=== PATIENT | female | born 1980 | race African-American/Black ===

== ENCOUNTER 2018-03-03 14:00 | Inpatient (IN) | payer OTHER ==
[2018-03-05] MEDS ORDERED: CITRIC ACID/SODIUM CITRATE 30 ML UNIT-DOSE CUP PO ONE (08:08)
[2018-03-05] MEDS ORDERED: ELECTROLYTE-148 SOLN 500 ML IV ONE (08:08)
[2018-03-05] MEDS ORDERED: ELECTROLYTE-148 SOLN 1,000 ML IV SCH (08:15)
[2018-03-05 08:39] VITALS: BMI 30.2
[2018-03-05] MEDS ORDERED: ONDANSETRON 4 MG/2 ML VIAL IVPUSH PRN (08:39)
[2018-03-05] MEDS ORDERED: morphine SULFATE/Preservative Free 0.5 MG/ML (1cc Syringe) ONE (09:01)
--- NOTE | 2018-03-05 09:21 | HP ---
Past Medical History - Admission Chief Complaint: Here for repeat c section. History Source: Patient - Past Medical History Cardiovascular: No: HTN Pulmonary: No: COPD Hepatobiliary: No: Hepatitis B, Hepatitis C ...: 8 ...Para: 2 ...Term: 2 ...: 0 ...Spon : 1 ...Induced : 4 ...Multiple Gestation: 0 ...LMP: 05/30/17 ... 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 No: HIV, MRSA Psych: No: Addictions, Anxiety, Bipolar - Past Surgical History Past Surgical History: Yes: Hx Myomectomy: No Hx Transabdominal Cerclage: No - Smoking History Smoking history: Never smoked Aproximately how many cigarettes per day: 0 - Alcohol/Substance Use Hx Alcohol Use: No - Social History ADL: Independent History of Recent Travel: No Home Medications - Allergies Allergies/Adverse Reactions: Allergies Allergy/AdvReac Type Severity Reaction Status Date / Time No Known Allergies Allergy Verified 03/03/18 15:29 - Home Medications Home Medications: Ambulatory Orders RX: Vitamins (Sjr) - 1 tab PO DAILY 01/06/18 Review of Systems - Review of Systems Constitutional: reports: No Symptoms Eyes: reports: No Symptoms HENT: reports: No Symptoms Neck: reports: No Symptoms Cardiovascular: reports: No Symptoms Respiratory: reports: No Symptoms Gastrointestinal: reports: No Symptoms Genitourinary: reports: No Symptoms Breasts: reports: No Symptoms Reported Musculoskeletal: reports: No Symptoms Integumentary: reports: No Symptoms Neurological: reports: No Symptoms Endocrine: reports: No Symptoms Hematology/Lymphatic: reports: No Symptoms Psychiatric: reports: No Symptoms Physical Exam - Maternity Vital Signs: Vital Signs Temperature 98.3 F 03/05/18 08:15 Pulse Rate 93 H 03/05/18 08:15 Respiratory Rate 20 03/05/18 08:15 Blood Pressure 133/79 03/05/18 08:15 O2 Sat by Pulse Oximetry (%) Constitutional: Yes: Well Nourished, No Distress, Calm Eyes: Yes: Conjunctiva Clear, EOM Intact HENT: Yes: Atraumatic, Normocephalic Neck: Yes: Supple, Trachea Midline Cardiovascular: Yes: Regular Rate and Rhythm Lungs: Clear to auscultation - Abdominal Exam/OB Number of Fetuses: Single Presentation: Vertex Contractions: Yes Regularity: Irregular Intensity: Mild/Mod Monitor Mode: External Category: I Accelerations: Uniform Decelerations: None - Vaginal Exam/OB Vaginal Bleediing: No Amniotic Membrane Status: Intact Presentation: Vertex/Position - Physical Exam Psychiatric: Yes: Alert, Oriented Hemorrhage Risk Assessment - Risk Factors Medium Risk Factors: Yes: Prior , uterine surgery,or multiple laparotomies High Risk Factors: Yes: None Risk Score: 1 Risk Level: Medium Risk Problem List - Problems (1) section Code(s): Z98.89 - OTHER SPECIFIED POSTPROCEDURAL STATES * DO NOT USE * Assessment/Plan 37 y/o with SIUP at 39.6 weeks, prior c section X 2, for repeat c section, desires sterilization - for BTL AFVSS FHTs cat 1 NPO li anesthesia and nursery aware
[2018-03-05] MEDS ORDERED: oxyCODONE HCL 5 MG TABLET PO PRN ×2 (09:22)
[2018-03-05] MEDS ORDERED: METHYLERGONOVINE MALEATE 0.2 MG/1 ML AMP IM PRN (09:22)
[2018-03-05] MEDS ORDERED: ceFAZolin SODIUM 1 GM VIAL ONE (09:34)
[2018-03-05] MEDS ORDERED: OXYTOCIN 10 UNITS/ML VIAL ONE (09:43)
--- NOTE | 2018-03-05 10:12 | OP ---
Operative Note - Note: Operative Date: 03/05/18 Pre-Operative Diagnosis: SIUP at 39.6 weeks, prior section X 2 Operation: Repeat delivery, bilateral tubal ligation Findings: Normal b/l tubes and ovaries, live male Post-Operative Diagnosis: Same as Pre-op Surgeon: Mercy Talamantes Hand Leather Trimmer: Chandra Cedillo Anesthesiologist/DELIVERY ROOM SUPERVISOR: Radha Greenwood Anesthesia: Spinal Estimated Blood Loss (mls): 600 Operative Report Dictated: Yes
--- NOTE | 2018-03-05 10:32 | SURG ---
Surgery Teaching Pastor Note Teaching Pastor: Chandra Cedillo PA-C Date of Service: 03/05/18 Diagnosis: repeat Procedure: Cesarian section and bilateral salpingectomy I was present for the entirety of the operative procedure. For further detail, please refer to operative report.
[2018-03-05] MEDS ORDERED: OXYTOCIN 20 UNITS in 0.9% NS 20 UNIT/1,000 ML INFUS.BAG IV ONE (10:41)
[2018-03-05] MEDS: OXYTOCIN 20 UNITS in 0.9% NS 20 UNIT/1,000 ML INFUS.BAG IV SCH ×2 (11:00→22:48)
[2018-03-05] MEDS: FERROUS SO4 325 MG TABLET (FP) PO SCH ×2 (11:00→22:23)
--- NOTE | 2018-03-05 11:54 | OP ---
DATE OF OPERATION: 03/05/2018 PREOPERATIVE DIAGNOSIS: Prior section x2, desire for permanent sterilization, declined trial of labor. POSTOPERATIVE DIAGNOSIS: Prior section x2, desire for permanent sterilization, declined trial of labor. PROCEDURE: Repeat low transverse section and bilateral tubal ligation using modified Destiny technique. SURGEON: Mercy Talamantes DO ANESTHESIA: Spinal by Dr. Radha Greenwood MD SPECIMEN COLLECTOR: Chandra Cedillo PA-C ESTIMATED BLOOD LOSS: 600 mL. COMPLICATIONS: None. SPECIMENS REMOVED: Placenta and portions of left and right fallopian tubes. COUNTS: Sponge, needle, and instrument count correct at the end of the case. DISPOSITION: Stable to PACU. FINDINGS: Normal live infant and normal bilateral tubes and ovaries. BRIEF HISTORY AND PROCEDURE: Patient is a 37-year-old female with a single intrauterine at 39.6 weeks, who had been scheduled for a repeat delivery. The patient was admitted to the hospital on March 05, 2018. Consents for the procedure were signed. She also expressed desire for permanent sterilization, and consents were signed for bilateral tubal ligation. Upon admission, the patient had no complications and no complaints. heart tracing was category 1. The patient was then taken back to the operating room where she was given spinal anesthesia with Dr. Greenwood, and placed in the dorsal supine position. A Nelson catheter was placed under sterile conditions. She was prepped and draped in the usual sterile fashion and a hard timeout was performed. A Pfannenstiel skin incision was created in the skin with a scalpel on her prior incision, and this was carried down to the underlying layer of rectus fascia sharply. The fascia was incised on either side of the midline sharply, and the fascial incision was extended in a superolateral direction sharply. The fascia was tented upward and dissected off the underlying layer of rectus muscle sharply, and the midline was identified. The musculature was retracted laterally, and the peritoneum was entered sharply using Metzenbaum scissors. A bladder blade was inserted to protect the bladder, and a transverse incision in the lower uterine segment was created sharply and extended in a superolateral direction bluntly. Infant then was delivered from the left occipitotransverse position without difficulty. Bilateral shoulders were delivered with ease, along with the remainder of the . The cord was clamped twice and cut in between. The infant was taken to the warmer to be assessed by the neonatology staff. Upon delivery the fetus, meconium-stained fluid was noted. The placenta was delivered with a 3-vessel cord, was intact, was manually extracted. The uterus was exteriorized and the abdomen, inspected and cleared of all amniotic membrane and debris with a dry lap sponge. The hysterotomy was reapproximated in a double-layer closure using 1 Vicryl in a running locked fashion, second layer using 0 Biosyn in a running fashion. Bilateral tubes and ovaries were noted to be normal. The right fallopian tube was identified, elevated with a Анна clamp, and a portion of the fallopian tube was tied off with free ties and excised with Metzenbaum scissors and sent to Pathology for permanent evaluation. The same was repeated with the left fallopian tube in order to complete the bilateral tubal ligation. The posterior cul-de-sac was cleared of all blood clot and debris. The uterus was placed back in the abdomen. Bilateral gutters were inspected and cleared of blood clot and debris. Bilateral tubal sites were noted to be hemostatic. The incision was noted to be hemostatic. Peritoneum was then reapproximated using 2-0 chromic in a running fashion. The musculature was approximated in 2 interrupted sutures using 0 Biosyn suture, and the fascia was reapproximated in 1 Vicryl using running fashion. The subcutaneous tissue was irrigated. Any bleeding was cauterized with the Bovie device. Vicryl 3-0 suture was used for the subcutaneous tissue, and the skin was reapproximated using 4-0 Biosyn in a subcuticular fashion. Steri-Strips were then applied. The patient tolerated the procedure well, recovered in stable condition in the recovery room after the procedure. MERCY TALAMANTES DO /[id number]
[2018-03-05] MEDS ORDERED: IBUPROFEN 800 MG/8 ML IJ IVPB ONE (12:00)
[2018-03-05] MEDS: IBUPROFEN 800 MG/8 ML IJ IVPB PRN ×2 (12:00→19:49)
[2018-03-05] MEDS ORDERED: TUBERCULIN PPD 5 TU/0.1ML SYRINGE (IN PATIENT USE ONLY) ID ONE (14:30)
[2018-03-05] MEDS: ACETAMINOPHEN 325 MG TABLET (FP) PO PRN (17:14)
[2018-03-05] MEDS: hydrOXYzine HCL 10 MG TABLET PO SCH (22:23)
[2018-03-06] MEDS: SIMETHICONE 80 MG TAB.CHEW (FP) PO PRN ×5 (02:28→21:27)
[2018-03-06] MEDS: ACETAMINOPHEN 325 MG TABLET (FP) PO PRN ×4 (02:28→21:27)
[2018-03-06] MEDS: IBUPROFEN 600 MG TABLET (FP) PO PRN ×4 (02:28→21:28)
[2018-03-06] MEDS: hydrOXYzine HCL 10 MG TABLET PO SCH ×3 (06:15→21:27)
[2018-03-06 08:16] LABS: BASO % 0.5 % (0-2.0); EOS % 0.7 % (0-4.5); HEMATOCRIT 32.3 % (32.4-45.2); HEMOGLOBIN 10.3 GM/dL (10.7-15.3); LYMPH % 14.3 % (8-40); MCH 29.1 pg (25.7-33.7); MCHC 31.9 g/dl (32.0-36.0); MEAN CELL VOLUME 91.1 fl (80-96); MEAN PLT VOLUME 7.6 fl (7.5-11.1); MONO % 10.8 % (3.8-10.2); NEUT % 73.7 % (42.8-82.8); PLATELET COUNT 265 K/MM3 (134-434); RBC 3.55 M/mm3 (3.60-5.2); RDW 13.8 % (11.6-15.6); WHITE BLOOD COUNT 13.8 K/mm3 (4.0-10.0)
[2018-03-06] MEDS ORDERED: BISACODYL 10 MG SUPP.RECT RC PRN (09:22)
[2018-03-06] MEDS: FERROUS SO4 325 MG TABLET (FP) PO SCH ×2 (09:39→21:27)
--- NOTE | 2018-03-06 10:45 | PN ---
Progress Note (short form) - Note Progress Note: Anesthesia postop note 37 y/o F s/o spinal anesthesia/ duramorph for section POD#1, vss, aaox3, sensory motor intact distally, pain well controlled No anesthesia complications.
[2018-03-07] MEDS: hydrOXYzine HCL 10 MG TABLET PO SCH ×3 (06:02→21:27)
[2018-03-07] MEDS: SIMETHICONE 80 MG TAB.CHEW (FP) PO PRN ×3 (06:15→17:16)
[2018-03-07] MEDS: ACETAMINOPHEN 325 MG TABLET (FP) PO PRN ×3 (06:15→17:18)
[2018-03-07] MEDS: IBUPROFEN 600 MG TABLET (FP) PO PRN ×3 (06:15→17:16)
[2018-03-07] MEDS: FERROUS SO4 325 MG TABLET (FP) PO SCH ×2 (09:19→21:27)
--- NOTE | 2018-03-07 09:44 | PN ---
Post Progress Note - Subjective Subjective: No complaints, pain controlled with motrin/tylenol. Tolerating diet. Ambulating, voiding, passing flatus. VB Minimal. Type of Delivery: Repeat C/S Vital Signs: Vital Signs Temperature 98.5 F 03/06/18 21:32 Pulse Rate 94 H 03/06/18 21:32 Respiratory Rate 20 03/06/18 21:32 Blood Pressure 112/60 03/06/18 21:32 O2 Sat by Pulse Oximetry (%) 98 03/05/18 11:45 Uterus: Yes: Fundus Firm Incision: Yes: Sutures intact Abdomen/GI: Yes: Abdomen soft. No: Tender Lochia: Yes: Rubra Lochia, amount: Small Extremities: Yes: Calves non-tender Perineum: Yes: Intact Activity: Ambulating - Labs Labs: CBC WBC 13.8 K/mm3 (4.0-10.0) H 03/06/18 07:45 RBC 3.55 M/mm3 (3.60-5.2) L 03/06/18 07:45 Hgb 10.3 GM/dL (10.7-15.3) L 03/06/18 07:45 Hct 32.3 % (32.4-45.2) L 03/06/18 07:45 MCV 91.1 fl (80-96) 03/06/18 07:45 MCH 29.1 pg (25.7-33.7) 03/06/18 07:45 MCHC 31.9 g/dl (32.0-36.0) L 03/06/18 07:45 RDW 13.8 % (11.6-15.6) 03/06/18 07:45 Plt Count 265 K/MM3 (134-434) D 03/06/18 07:45 MPV 7.6 fl (7.5-11.1) 03/06/18 07:45 Absolute Neuts (auto) 10.2 K/mm3 (1.5-8.0) H 03/06/18 07:45 Neutrophils % 73.7 % (42.8-82.8) 03/06/18 07:45 Lymphocytes % 14.3 % (8-40) 03/06/18 07:45 Monocytes % 10.8 % (3.8-10.2) H 03/06/18 07:45 Eosinophils % 0.7 % (0-4.5) 03/06/18 07:45 Basophils % 0.5 % (0-2.0) 03/06/18 07:45 Nucleated RBC % 0 % (0-0) 03/06/18 07:45 Problem List - Problems (1) section Code(s): Z98.89 - OTHER SPECIFIED POSTPROCEDURAL STATES * DO NOT USE * Assessment/Plan 37 y/o POD#2 s/p repeat c section and BTL AFVSS regular diet ambulation plan for discharge
[2018-03-08] MEDS: ACETAMINOPHEN 325 MG TABLET (FP) PO PRN ×2 (03:11→07:30)
[2018-03-08] MEDS: SIMETHICONE 80 MG TAB.CHEW (FP) PO PRN ×2 (03:11→07:30)
[2018-03-08] MEDS: IBUPROFEN 600 MG TABLET (FP) PO PRN ×2 (03:12→07:28)
[2018-03-08] MEDS: hydrOXYzine HCL 10 MG TABLET PO SCH ×2 (06:23→13:26)
--- NOTE | 2018-03-08 07:59 | DS ---
Physical Exam-SCENIC DESIGNER Vital Signs: Vital Signs Temperature 98.6 F 03/07/18 21:41 Pulse Rate 87 03/07/18 21:41 Respiratory Rate 18 03/07/18 21:41 Blood Pressure 132/79 03/07/18 21:41 O2 Sat by Pulse Oximetry (%) 98 03/05/18 11:45 Labs: CBC, BMP 03/06/18 07:45 Delivery - Delivery Type of Anesthesia: Spinal Episiotomy/Laceration: None EBL (cc): 600 Delivery, Single - Stages of Labor Date 1st Stage Initiatied: 03/04/18 Time 1st Stage Initiated: 22:00 Date of Delivery: 03/05/18 Time of Delivery: 09:41 Time Placenta Delivered: 09:42 - Condition of Infant Processor Inspector/Bilingual Branch Manager Present: Yes Name: Dom Shelton Infant Gender: Male Weight: 7 lb 8 oz Position: Left, OT Total Hours ROM (Hrs/Mins): 2min - 1 Minute Total Score: 9 5 Minutes Total Score: 9 - [place] Feeding Plan Initial Plan: Elected not to breastfeed exclusively throughout hospitalization Discharge Summary Reason For Visit: Condition: Good - Instructions Diet, Activity, Other Instructions: Physical activity Resume your normal everyday activity as tolerated no heavy lifting or exercise until seen by your surgeon. You may walk unlimited benson of and climb stairs. You may resume driving the car when you feel safe and comfortable behind the wheel. No sexual activity as instructed. Wound care If you have a bandage, leave it on, and keep dry for 48-72 hours. After that time discard the outer bandage. If they are tapes on the skin under the out of bandage leave them in place. They will peel off in the next 7 to 10 days. Do Not Peel them off. You may shower the day after surgery. If there are tapes present on the skin, you may shower over them. Diet There are no dietary restrictions. Eat healthy, high-fiber foods. Drink 6 to 8 glasses of liquid each day. This will assist in keeping your bowels are regular. Pain management You may take Tylenol or acetaminophen or Ibuprofen (for example, Motrin, Advil etc.) from my pain prescription medication is ordered should be taken as prescribed for moderate to severe pain. Call MD for any of the following: Severe pain not relieved by medication Fever of 101 or higher Excessive bleeding or drainage on dressing Inability to urinate Referrals: Mercy Talamantes DO [Staff Physician] - Disposition: HOME - Home Medications Comprehensive Discharge Medication List: Ambulatory Orders RX: Vitamins (Sjr) - 1 tab PO DAILY 01/06/18 RX: Ibuprofen [Motrin -] 600 mg PO TID #21 tablet 03/08/18
[2018-03-08 08:25] LABS: BASO % 0.6 % (0-2.0); HEMATOCRIT 29.1 % (32.4-45.2); HEMOGLOBIN 9.4 GM/dL (10.7-15.3); LYMPH % 22.6 % (8-40); MCH 29.6 pg (25.7-33.7); MCHC 32.2 g/dl (32.0-36.0); MEAN PLT VOLUME 7.8 fl (7.5-11.1); MONO % 11.6 % (3.8-10.2); NEUT % 62.2 % (42.8-82.8); PLATELET COUNT 242 K/MM3 (134-434); RBC 3.17 M/mm3 (3.60-5.2); RDW 13.8 % (11.6-15.6); WHITE BLOOD COUNT 9.6 K/mm3 (4.0-10.0)
[2018-03-08 08:36] VITALS: BP 105/71; PULSE 78; TEMP 98
[2018-03-08] MEDS: FERROUS SO4 325 MG TABLET (FP) PO SCH (09:32)
--- NOTE | 2018-03-11 16:05 | PATH ---
Surgical Pathology Report Patient Name: NOVA WONG [facility]. Rec. #: [id number] /Age/Gender: 1980 (Age: 37) / F Account: [id number] Location: [facility] OBS/CORPORATE GIVING MANAGER Taken: 03/05/2018 Received: 03/05/2018 Reported: 03/11/2018 Physicians: Mercy Talamantes M.D. Specimen(s) Received A: PLACENTA B: RIGHT FALLOPIAN TUBE C: LEFT FALLOPIAN TUBE Clinical History , 39.4 weeks IAB x4, SPAB x1 Grand multiparity, advanced maternal age, HSV-2 2007, 2012 Final Diagnosis A. PLACENTA, DELIVERY: FOCALLY DISRUPTED THIRD TRIMESTER PLACENTA WITH INTERVILLOUS FIBRIN DEPOSITION, THREE VESSEL UMBILICAL CORD AND MECONIUM HISTIOCYTOSIS OF PLACENTAL MEMBRANES. B. RIGHT FALLOPIAN TUBE, PARTIAL SALPINGECTOMY: FULL LUMINAL PORTION OF UNREMARKABLE FALLOPIAN TUBE. C. LEFT FALLOPIAN TUBE, PARTIAL SALPINGECTOMY: FULL LUMINAL PORTION OF UNREMARKABLE FALLOPIAN TUBE. Electronically Signed Junior Ortega M.D. Gross Description A. The specimen is received fresh labeled placenta and is a 433 gram, 18.5 x 15.0 x 2.4 cm. placenta with attached membranes and umbilical cord. The attached membranes are boo green, meconium stained, translucent with focal opacities and insert marginally. The umbilical cord measures 33 cm. in length and averages 0.9 cm. in diameter. The cord inserts centrally. No true knots or strictures are identified. Cut surface of the umbilical cord reveals 3 vessels. The surface is cooper green, meconium stained with minimal fibrin deposition and appropriate caliber vessels. The maternal surface is red-brown with focal defects. Sectioning reveals red-brown, spongy parenchyma. No lesions are identified. Clay Dry Press Helper sections are submitted in three cassettes as follows: 1- membrane rolls and umbilical cord; 2-3- full thickness sections of placenta. B. Received in formalin labeled "right fallopian tube," is a 2.1 cm in length portion of fallopian tube. No fimbria are present. The outer surface is boo-cooper and smooth. Sectioning reveals an unremarkable lumen. Clay Dry Press Helper sections are submitted in one cassette. C. Received in formalin labeled "left fallopian tube," is a 2.4 cm in length portion of fallopian tube. No fimbria are present. The outer surface is boo-cooper and smooth. Sectioning reveals an unremarkable lumen. Clay Dry Press Helper sections are submitted in one cassette. 03/10/2018 [facility]03/10/2018
== END 2018-03-08 16:41 | disposition home or self-care (01) | DRG 784 ==
LOC: JLDR 03-05 07:25 → J3W 03-05 12:44
PROVIDERS: ADMIT Obstetrics & Gynecology; ATTEND Obstetrics & Gynecology
PROC: 10D00Z1 Extraction of Products of Conception, Low, Open Approach (ICD-10-PCS; principal; 2018-03-05)
PROC: 0UL70DZ Occlusion of Bilateral Fallopian Tubes with Intraluminal Device, Open Approach (ICD-10-PCS; 2018-03-05)
DX: O34.211 Maternal care for low transverse scar from previous cesarean delivery (principal); O98.313 Other infections with a predominantly sexual mode of transmission complicating pregnancy, third trimester; A60.04 Herpesviral vulvovaginitis; Z3A.39 39 weeks gestation of pregnancy; Z37.0 Single live birth; Z30.2 Encounter for sterilization
CPT/HCPCS: 36415; 85025; 88302-TC; 88307-TC

== ENCOUNTER 2018-05-25 00:42 | Emergency (ER) | payer OTHER ==
[2018-05-25 00:57] VITALS: BP 137/73; PULSE 60; TEMP 98.1; BMI 26.5
--- NOTE | 2018-05-25 01:14 | PDOC ---
Attending Attestation - HPI HPI: 05/25/18 01:49 The patient is a 38 year old female with past medical history significant for bilateral BTL and presents to the emergency department with abdominal pain. The patient presents with right lower quadrant pain accompanied with nausea and mild vaginal bleeding. The patient reports shes concerned she might have a tubal . The patient reports she is eating without difficulty. DEnies dysuria, hematuria, frequency or urgency to urinate. Denies fever,chills , chest pain or SOB. LMP: 4 days ago. Allergies: NKDA Social history: The patient reports she is sexually active. - Medical Decision Making 05/25/18 01:20 Documentation prepared by Breanna Beebe, acting as medical technologist prn for Graciela Alfaro MD. <Breanna Beebe - Last Filed: 05/25/18 01:49> - Resident Resident Name: Zia Mai - ED Attending Attestation I have performed the following: I have examined & evaluated the patient, The case was reviewed & discussed with the resident, I agree w/resident's findings & plan - Physicial Exam PE: 05/25/18 04:35 Agree with resident exam - Medical Decision Making 05/25/18 02:39 Patient Name: NOVA WONG THIS IS A PRELIMINARY REPORT FROM IMAGING PROPERTY TECHNICIAN DATE OF SERVICE: 2018-05-25 01:20:18 IMAGES: 71 EXAM: US TRANSVAGINAL ULTRASOUND US HISTORY: Right lower quadrant pain COMPARISON: None. FINDINGS: The uterus measures 10.6 cm in length. The endometrium is 3 mm. There is a trace of endometrial fluid The right ovary measures 2.7 x 1.4 x 2.2 cm. There is a 1.0 cm follicle. Doppler imaging demonstrates positive vascular flow with arterial and venous waveforms. The left ovary measures 2.1 x 1.1 x 1.6 cm. Doppler imaging demonstrates positive vascular flow with arterial and venous waveforms. IMPRESSION: Trace of endometrial fluid is nonspecific possibly related to stage of menstrual cycle. Correlation with history and exam recommended. No adnexal mass or ovarian torsion 05/25/18 04:10 UCG negative; chem is normal; cbc normal <Graciela Alfaro - Last Filed: 05/25/18 04:36>
[2018-05-25] MEDS ORDERED: ACETAMINOPHEN 1000 MG/100 ML VIAL (NON FORMULARY) IVPB ONE (01:16)
[2018-05-25] MEDS ORDERED: ONDANSETRON 4 MG/2 ML VIAL IVPUSH ONE (01:16)
--- NOTE | 2018-05-25 01:46 | PDOC ---
History of Present Illness - General Chief Complaint: Pain Stated Complaint: ABDOMINAL CRAMPS Time Seen by Provider: 05/25/18 00:59 History Source: Patient Exam Limitations: No Limitations - History of Present Illness Initial Comments: 05/25/18 01:37 Patient is 38F with history of and bilateral tubal ligation here today complaining of a cramping lower abdominal pain that started today. She states she has associated small amount of vaginal bleeding. Last normal menstruation was 4 days ago, but states that she's had a small amount of vaginal bleeding. Endorses an episode of nausea. Denies fevers, chills. Last bowel movement yesterday. Patient states that she is concerned that she is despite the BTL. Past History - Past Medical History Allergies/Adverse Reactions: Allergies Allergy/AdvReac Type Severity Reaction Status Date / Time No Known Allergies Allergy Verified 05/25/18 00:57 Home Medications: Ambulatory Orders Vitamins (Sjr) - 1 tab PO DAILY 01/06/18 Ibuprofen [Motrin -] 600 mg PO TID #21 tablet 03/08/18 Asthma: No Cancer: No Cardiac Disorders: No COPD: No Diabetes: No HTN: No Seizures: No Thyroid Disease: No - Suicide/Smoking/Psychosocial Hx Smoking Status: No Smoking History: Never smoked Number of Cigarettes Smoked Daily: 0 Hx Alcohol Use: No Drug/Substance Use Hx: No Hx Substance Use Treatment: No Review of Systems - Review of Systems Comments:: 05/25/18 02:57 GENERAL/CONSTITUTIONAL: No fever or chills. No weakness. HEAD, EYES, EARS, NOSE AND THROAT: No change in vision. No sore throat. CARDIOVASCULAR: No chest pain or shortness of breath RESPIRATORY: No cough, wheezing, or hemoptysis. GASTROINTESTINAL: +nausea, no vomiting, diarrhea or constipation. GENITOURINARY: No dysuria, frequency, or change in urination. MUSCULOSKELETAL: No joint or muscle swelling or pain. No neck or back pain. SKIN: No rash NEUROLOGIC: No headache, vertigo, loss of consciousness, or change in strength/ sensation. ENDOCRINE: No increased thirst. No abnormal weight change HEMATOLOGIC/LYMPHATIC: No anemia, easy bleeding, or history of blood clots. ALLERGIC/IMMUNOLOGIC: No hives or skin allergy. *Physical Exam - Vital Signs Last Vital Signs Temp Pulse Resp BP Pulse Ox 98.1 F 60 18 137/73 100 05/25/18 00:54 05/25/18 00:54 05/25/18 00:54 05/25/18 00:54 05/25/18 00:54 - Physical Exam Comments: 05/25/18 02:58 GENERAL: Awake, alert, and fully oriented, in no acute distress HEAD: No signs of trauma, normocephalic, atraumatic EYES: PERRLA, EOMI, sclera anicteric, conjunctiva clear ENT: Auricles normal inspection, hearing grossly normal, nares patent, oropharynx clear without exudates. Moist mucosa NECK: Normal ROM, supple, no lymphadenopathy, JVD, or masses LUNGS: No distress, speaks full sentences, clear to auscultation bilaterally HEART: Regular rate and rhythm, normal S1 and S2, no murmurs, rubs or gallops, peripheral pulses normal and equal bilaterally. ABDOMEN: Soft, mild RLQ tenderness, normoactive bowel sounds. No guarding, no rebound. No masses PELVIC: Normal external genitalia, no cmt, no adnexal tenderness or masses EXTREMITIES: Normal inspection, Normal range of motion, no edema. No clubbing or cyanosis. NEUROLOGICAL: Cranial nerves II through XII grossly intact. Normal speech, normal gait, no focal sensorimotor deficits SKIN: Warm, Dry, normal turgor, no rashes or lesions noted. Moderate Sedation - Procedure Monitoring Vital Signs: Procedure Monitoring Vital Signs Temperature 98.1 F 05/25/18 00:54 Pulse Rate 60 05/25/18 00:54 Respiratory Rate 18 05/25/18 00:54 Blood Pressure 137/73 05/25/18 00:54 O2 Sat by Pulse Oximetry (%) 100 05/25/18 00:54 ED Treatment Course - LABORATORY CBC & Chemistry Diagram: 05/25/18 02:19 05/25/18 02:24 - RADIOLOGY Radiology Studies Ordered: Category Date Time Status TRANSVAGINAL ULTRASOUND US [US] Stat Ultrasound 05/25/18 01:16 Ordered Medical Decision Making - Medical Decision Making 05/25/18 02:59 Patient is 38F here today with RLQ pain. Vitals normal and stable. Patient appears well, seems to be mainly concerned about possibility of being . DDx includes, but is not limited to: uti, ovarian cyst, ovarian torsion, . TVUS shows small 1cm follicle on right ovary, otherwise normal. 05/25/18 04:22 CBC normal. CMP reassuring. UA normal. Patient's pain resolved with motrin, nontender on exam. Will discharge home. *DC/Admit/Observation/Transfer Diagnosis at time of Disposition: Abdominal pain - Discharge Dispostion Disposition: HOME Condition at time of disposition: Good Decision to Admit order: No - Referrals Referrals: George Hicks MD [Primary Care Provider] - - Patient Instructions Printed Discharge Instructions: DI for Abdominal Pain-Adult Additional Instructions: Please follow up with your OBGYN this week. Please return if you have any new, worsening or concerning symptoms, especially fever, increasing pain and vomiting. - Post Discharge Activity Forms/Work/School Notes: Back to Work
[2018-05-25] MEDS ORDERED: ONDANSETRON 4 MG/2 ML VIAL ONE (01:47)
[2018-05-25] MEDS ORDERED: ACETAMINOPHEN INJECTION 100 ML IVPB ONE (01:47)
[2018-05-25] MEDS ORDERED: ONDANSETRON *ODT* 4 MG TABLET SL ONE (02:20)
[2018-05-25] MEDS ORDERED: IBUPROFEN 400 MG TABLET (FP) PO ONE ×2 (02:20→02:26)
[2018-05-25] MEDS ORDERED: ONDANSETRON *ODT* 4 MG TABLET ONE (02:25)
[2018-05-25 03:23] LABS: BASO % 0.7 % (0-2.0); EOS % 1.6 % (0-4.5); HEMATOCRIT 34.3 % (32.4-45.2); HEMOGLOBIN 11.7 GM/dL (10.7-15.3); LYMPH % 26.2 % (8-40); MCH 29.8 pg (25.7-33.7); MCHC 34.2 g/dl (32.0-36.0); MEAN CELL VOLUME 87.1 fl (80-96); MEAN PLT VOLUME 7.7 fl (7.5-11.1); MONO % 7.6 % (3.8-10.2); NEUT % 63.9 % (42.8-82.8); PLATELET COUNT 359 K/MM3 (134-434); RBC 3.94 M/mm3 (3.60-5.2); RDW 13.3 % (11.6-15.6); WHITE BLOOD COUNT 6.4 K/mm3 (4.0-10.0)
[2018-05-25 03:26] LABS: ALBUMIN 3.6 g/dl (3.4-5.0); ALK PHOS 136 U/L (45-117); ANION GAP 5 MMOL/L (8-16); BILIRUBIN,TOTAL 0.7 mg/dL (0.2-1); BLOOD UREA NITROGEN 11 mg/dL (7-18); CALCIUM 8.3 mg/dL (8.5-10.1); CHLORIDE 108 mmol/L (98-107); CO2 26 mmol/L (21-32); CREATININE 0.7 mg/dL (0.55-1.3); GLUCOSE,RANDOM 102 mg/dL (74-106); LIPASE 231 U/L (73-393); SGOT/AST 14 U/L (15-37); SGPT/ALT 21 U/L (13-61); SODIUM 138 mmol/L (136-145); TOT PROT 7.1 g/dl (6.4-8.2)
[2018-05-25 04:07] LABS: HCG,QUALITATIVE URINE Negative
[2018-05-25 04:08] LABS: URINE APPEARANCE CLEAR; URINE BILIRUBIN NEGATIVE (<2.0 mg/dL); URINE COLOR LTYELLOW; URINE GLUCOSE (UA) NEGATIVE (NEGATIVE); URINE KETONE NEGATIVE (NEGATIVE); URINE LEUK ESTERASE NEGATIVE (NEGATIVE); URINE NITRITE NEGATIVE (NEGATIVE); URINE PROTEIN NEGATIVE (NEGATIVE)
[2018-05-25 04:16] LABS: EPI CELLS RARE /HPF (FEW); URINE MUCUS RARE
== END 2018-05-25 04:57 | disposition home or self-care (01) ==
LOC: JER 00:42
DX: R10.30 Lower abdominal pain, unspecified (principal)
CPT/HCPCS: 36415; 76830-TC; 80053; 81003; 81015; 83690; 84703; 85025; 87491; 87591; 99282-25; Q0162

== ENCOUNTER 2021-09-26 12:10 | Emergency (ER) | payer OTHER ==
[2021-09-26 12:29] VITALS: BP 118/66; PULSE 78; TEMP 97.6; BMI 25.7
[2021-09-26] MEDS ORDERED: IBUPROFEN 600 MG TABLET (FP) PO ONE ×2 (13:11→13:14)
== END 2021-09-26 14:15 | disposition home or self-care (01) ==
LOC: JERFT 12:10 → JER 12:10 → JERFT 14:15
DX: M25.511 Pain in right shoulder (principal)
CPT/HCPCS: 73030-TC-RT-FY; 99283-25

== ENCOUNTER 2021-10-31 15:31 | Emergency (ER) | payer OTHER ==
[2021-10-31 15:46] VITALS: BP 110/70; PULSE 84; RESP 18; TEMP 98.1; BMI 24.7
== END 2021-10-31 16:14 | disposition home or self-care (01) ==
LOC: JERFT 15:31
DX: H61.23 Impacted cerumen, bilateral (principal)
CPT/HCPCS: 99281-25

== ENCOUNTER 2022-07-23 15:35 | Emergency (ER) | payer OTHER ==
[2022-07-23 15:58] VITALS: BP 99/57; PULSE 80; RESP 18; TEMP 98.1; BMI 25.7
[2022-07-23 17:16] LABS: PH,URINE 6.5 (5.0-8.0); URINE APPEARANCE CLEAR; URINE BILIRUBIN NEGATIVE (NEGATIVE); URINE COLOR YELLOW; URINE GLUCOSE (UA) NEGATIVE (NEGATIVE); URINE KETONE NEGATIVE (NEGATIVE); URINE LEUK ESTERASE NEGATIVE (NEGATIVE); URINE NITRITE NEGATIVE (NEGATIVE); URINE PROTEIN NEGATIVE (NEGATIVE)
== END 2022-07-23 16:54 | disposition home or self-care (01) ==
LOC: JERFT 15:35
DX: N89.8 Other specified noninflammatory disorders of vagina (principal)
CPT/HCPCS: 36415; 81003; 84703; 87491; 87591; 99283-25

== ENCOUNTER 2023-07-30 08:45 | Emergency (ER) | payer OTHER ==
[2023-07-30 08:53] VITALS: BP 109/59; PULSE 83; RESP 20; TEMP 98.3; BMI 25.7
[2023-07-30 09:12] LABS: PH,URINE 5.5 (5.0-8.0); URINE APPEARANCE CLEAR; URINE BILIRUBIN NEGATIVE (NEGATIVE); URINE COLOR YELLOW; URINE GLUCOSE (UA) NEGATIVE (NEGATIVE); URINE KETONE NEGATIVE (NEGATIVE); URINE LEUK ESTERASE NEGATIVE (NEGATIVE); URINE NITRITE NEGATIVE (NEGATIVE); URINE PROTEIN NEGATIVE (NEGATIVE)
[2023-07-30 09:16] LABS: HCG,QUALITATIVE URINE Negative
[2023-07-30 11:46] LABS: SYPHILIS W/ RPR CONF NON-REACTIVE (NONREACTIVE)
[2023-07-30 12:16] LABS: HIV INTERPRETATION NEGATIVE (NEGATIVE)
== END 2023-07-30 09:59 | disposition home or self-care (01) ==
LOC: JER 08:45
DX: R30.0 Dysuria (principal)
CPT/HCPCS: 36415; 81003; 84703; 86705; 86780; 86803; 87086; 87340; 87389; 87491; 87517; 87522; 87591; 99283-25

== ENCOUNTER 2024-01-31 21:46 | Emergency (ER) | payer OTHER ==
[2024-01-31 21:57] VITALS: BP 117/71; PULSE 79; RESP 18; TEMP 98; BMI 25.7
[2024-01-31] MEDS: KETOROLAC TROMETHAMINE 15 MG/ML VIAL IM ONE ×2 (23:08→23:30)
[2024-01-31] MEDS ORDERED: KETOROLAC TROMETHAMINE 30 MG/1 ML VIAL ONE (23:27)
[2024-02-01] MEDS ORDERED: CEPHALEXIN MONOHYDRATE 500 MG CAPSULE (UD) ONE (01:28)
[2024-02-01] MEDS: CEPHALEXIN MONOHYDRATE 500 MG CAPSULE (UD) PO ONE (01:28)
[2024-02-01 03:16] LABS: HIV INTERPRETATION NEGATIVE (NEGATIVE)
== END 2024-02-01 01:29 | disposition home or self-care (01) ==
LOC: JER 21:46
PROC: 3E0333Z Introduction of Anti-inflammatory into Peripheral Vein, Percutaneous Approach (ICD-10-PCS; principal; 2024-01-31)
DX: S62.663A Nondisplaced fracture of distal phalanx of left middle finger, initial encounter for closed fracture (principal); W06.XXXA Fall from bed, initial encounter
CPT/HCPCS: 36415; 73130-TC-LT-FY; 86803; 87389; 99284-25

== ENCOUNTER 2024-08-25 15:49 | Emergency (ER) | payer OTHER ==
[2024-08-25 16:12] VITALS: BP 125/77; PULSE 83; RESP 20; TEMP 98.8; BMI 24.7
[2024-08-25] MEDS ORDERED: IBUPROFEN 400 MG TABLET (FP) PO ONE (16:43)
[2024-08-25] MEDS ORDERED: LORATADINE 10 MG TABLET ONE (16:43)
[2024-08-25] MEDS: IBUPROFEN 400 MG TABLET (FP) PO ONE (16:45)
[2024-08-25] MEDS: LORATADINE 10 MG TABLET PO ONE (16:45)
[2024-08-25 17:25] LABS: THROAT:GRP A STREP NOT DETECTED (NOTDETECTED)
== END 2024-08-25 17:29 | disposition home or self-care (01) ==
LOC: JERFT 15:49
DX: J02.9 Acute pharyngitis, unspecified (principal); R09.81 Nasal congestion; J34.89 Other specified disorders of nose and nasal sinuses; R51.9 Headache, unspecified; H04.203 Unspecified epiphora, bilateral; R09.82 Postnasal drip
CPT/HCPCS: 0241U-QW; 87651; 99283-25